=== PATIENT | female | born 1960 | race Caucasian/White ===

== ENCOUNTER 2022-05-29 10:22 | Emergency (ER) | payer BC ==
--- NOTE | 2022-05-29 11:00 | XRAY Report ---
PROCEDURE: Shoulder 3 View RT INDICATIONS: GLF/Shoulder pain TECHNIQUE: 3 views of the shoulder were acquired. COMPARISON: None. FINDINGS: Bones: There is a minimally displaced fracture of the distal right clavicle. The acromioclavicular tatiana int is intact. There are mild degenerative changes of the glenohumeral joint and acromioclavicular tatiana int. No rib fracture. Soft tissues: No suspicious soft tissue calcifications. IMPRESSION: Minimally displaced fracture of the right distal clavicle. Reviewed by: Jadon Viveros on 05/29/2022 10:59 AM PDT Approved by: Jadon Viveros on 05/29/2022 10:59 AM PDT Station ID: [id number]
--- NOTE | 2022-05-29 12:17 | ED Physician Documentation ---
PD HPI UPPER EXT INJURY - Stated complaint Stated Complaint: RT SHOULD INJ - Chief complaint Chief Complaint: Trauma Ext - History obtained from History obtained from: Patient - History of Present Illness Location: Right, Shoulder Type of injury: Fall (tripped in parking lot.) Timing - onset: How many hours ago (1), Today Timing - details: Abrupt onset, Still present Worsened by: Moving (abduction and extension at shoulder.), Palpating (distal clavicle area.) Associated symptoms: No: Weakness, Numbness Similar symptoms before: Has not had sx before Recently seen: Not recently seen Review of Systems Skin: denies: Abrasion (s), Laceration (s) Musculoskeletal: denies: Neck pain, Back pain Neurologic: denies: Focal weakness, Numbness, Altered mental status, Headache, Head injury PD PAST MEDICAL HISTORY - Past Medical History Cardiovascular: None Respiratory: None Endocrine/Autoimmune: HyPOthyroidism Psych: Depression Musculoskeletal: Osteoporosis - Present Medications Home Medications: Ambulatory Orders Medication Instructions Recorded Confirmed Hydrocodone/Acetaminophen 1 each PO Q4H PRN 05/29/22 05/29/22 [Hydrocodone-Acetamin 10-325 mg] Levocetirizine Dihydrochloride 5 mg PO DAILY 05/29/22 05/29/22 Levothyroxine [Synthroid] 75 mcg PO QDAC 05/29/22 05/29/22 Montelukast [Singulair] 10 mg PO QPM 05/29/22 05/29/22 Sertraline [Zoloft] 50 mg PO DAILY 05/29/22 05/29/22 methocarbamoL [Methocarbamol] 750 mg PO Q6H 05/29/22 05/29/22 tiZANidine [Zanaflex] 4 mg PO DAILY PM 05/29/22 05/29/22 - Allergies Allergies/Adverse Reactions: Allergies Allergy/AdvReac Type Severity Reaction Status Date / Time acetaminophen [From Percocet] Allergy Unknown Verified 05/29/22 10:32 meperidine [From Demerol] Allergy Unknown Verified 05/29/22 10:32 oxycodone [From Percocet] Allergy Unknown Verified 05/29/22 10:32 PD ED PE NORMAL - Vitals Vital signs reviewed: Yes - General General: Alert and oriented X 3, Well developed/nourished - HEENT HEENT: Atraumatic - Neck Neck: Supple, no meningeal sign, No bony TTP - Cardiac Cardiac: RRR, No murmur - Respiratory Respiratory: Clear bilaterally - Derm Derm: Normal color, Warm and dry - Extremities Extremities: Other (right distal clavicle with tenderness, swelling, and mild early ecchymosis locally. ) - Neuro Neuro: Alert and oriented X 3, No motor deficit, No sensory deficit, Normal speech Results - Vitals Vitals: Vital Signs - 24 hr 05/29/22 05/29/22 10:29 12:35 Temperature 36.3 C L Heart Rate 67 64 Respiratory 14 16 Rate Blood Pressure 143/69 H 125/62 O2 Saturation 97 94 Oxygen O2 Source Room air - Rads (name of study) right shoulder Radiology: Prelim report reviewed (distal clavicle fracture. ), See rad report PD MEDICAL DECISION MAKING - ED course Complexity details: reviewed results, considered differential, d/w patient Departure - Departure Disposition: 01 Home, Self Care Clinical Impression: Accidental fall Qualifiers: Encounter type: initial encounter Qualified Code(s): W19.XXXA - Unspecified fall, initial encounter Clavicle fracture Qualifiers: Encounter type: initial encounter Clavicle location: lateral end Fracture type: closed Fracture alignment: nondisplaced Laterality: right Qualified Code(s): S42.034A - Nondisplaced fracture of lateral end of right clavicle, initial encounter for closed fracture Condition: Stable Record reviewed to determine appropriate education?: Yes Instructions: ED Fx Clavicle Comments: Continue with your current daily medications including the pain medicine and muscle relaxants. Over the next week I would suggest adding an anti-inflammatory for this acute injury such as Aleve or naproxen or ibuprofen 3 times daily over the next week. Use the sling/shoulder immobilizer to help reduce motion and allow improved comfort. You can do light movement with the lower arm and hand and wrist. In particular he want to minimize movement of the upper arm. This will take about 4 weeks for healing. As its improving, you can increase motion as tolerated but for the 4 weeks, no overhead reaching, push pull, heavy lifting. I would suggest following up with your primary care in about a week and 1/2 to 2 weeks to ensure this is healing appropriately., Call for an appointment. Discharge Date/Time: 05/29/22 12:42
[2022-05-29 12:36] VITALS: BP 125/62
== END 2022-05-29 12:42 | disposition home or self-care (01) ==
LOC: ED 10:22
DX: S42.034A Nondisplaced fracture of lateral end of right clavicle, initial encounter for closed fracture (principal); W01.0XXA Fall on same level from slipping, tripping and stumbling without subsequent striking against object, initial encounter; Y92.481 Parking lot as the place of occurrence of the external cause
CPT/HCPCS: 99282; 99283